=== PATIENT | female | born 1940 | race Caucasian/White ===

== ENCOUNTER → 2017-06-19 | Outpatient (CLI) | payer OTHER ==
[~2017-06-19] MED LIST: ASPIR 8181 M1 PO; CALCIUM CITRAT1 EAC7 PO; NABUMETONE 500500 M2 PO; SIMVASTATIN10 MG PO; SYNTHROID50 MCG PO; TOPROL XL25 MG PO; VITAMIN D31000 UNIT PO; ZANAFLEX2 MG PO
== END ==
LOC: RAD 09:58
DX: M47.896 Other spondylosis, lumbar region (principal); M41.86 Other forms of scoliosis, lumbar region; M43.16 Spondylolisthesis, lumbar region

== ENCOUNTER → 2017-10-17 | Outpatient (CLI) | payer OTHER ==
[~2017-10-17] VITALS: Ht 162.6 cm; Wt 78.9 kg
--- NOTE | ~2017-10-17 | HPC ---
[facility] [place] [address] PAIN MANAGEMENT CONSULTATION Name: KARENA MOULTON [facility] [id number] Admission: 10/17/17 Attend Phys: Josep Arenas DO Discharge: Date of : 39 Report #: [id number] THIS REPORT FOR: //name// CC: Josep Ellison MD DATE OF SERVICE: 10/17/2017 CHIEF COMPLAINT: Right thoracic pain. HISTORY OF PRESENT ILLNESS: As you know, the patient is a 76-year-old female who reports right mid thoracic pain that began without inciting injury or trauma. She believes the pain began while traveling in [place]. She indicates she believes she may have exacerbated symptoms while carrying heavy bags during her travels. She was given a topical agent by a friend, which resolved the patient's symptoms. Symptoms resolved for about 6 months and then unfortunately returned. The pain became so intense she sought evaluation through her PCP who referred the patient for physical therapy. She has completed 13 sessions with resolution of symptoms initially, but her symptoms have returned to a level of 9/10. She states that she has periodic exacerbations of symptoms with 6-8 weeks of pain free with reexacerbation of symptoms and this has been present since her trip to [place]. The patient sought evaluation once again through her primary care physician who sent her for x-ray imaging of the lumbar spine. Imaging shows some changes, but nothing specific that might be causing her thoracic pain. She has been referred to our service, discussed treatment options for thoracis pain, appears to be myofascial in origin. The patient today describes the pain as gnawing, throbbing, sharp and stabbing. She indicates she experiences pain that is periodic and intermittent. No specific propagating movement. No specific relieving maneuvers. She indicates pain anywhere from 0-9/10 depending on activity. She states movement tends to exacerbate symptoms. Heat tends to improve pain. She has been referred to our service to discuss about treatment options for thoracic paraspinal muscle pain. PAST MEDICAL HISTORY: 1. Anemia. 2. Coronary artery disease. 3. Hypothyroidism. 4. Dyslipidemia. PAST SURGICAL HISTORY: 1. Tonsillectomy. 2. [place] tooth extraction. SOCIAL HISTORY: The patient denies tobacco, alcohol, IV or illicit drug use. 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 She is not receiving workmen's compensation nor is she trying to obtain disability benefits. She is unaccompanied today. She is not in litigation in regards to her pain. REVIEW OF SYSTEMS: Positive for wearing corrective eyewear, blurred and double vision, cataracts, heart trouble, palpitations, nocturia, incontinence and dribbling to urine, varicose veins, insomnia, thyroid disease, thoracic paraspinal muscle pain. All other review of systems negative per 12-point review of systems other than those listed in history of present illness. Pain impact score is 0/70. No interference of daily activities secondary to pain. ALLERGIES: No known drug allergies. CURRENT MEDICATIONS: Nabumetone 500 mg 3 times a day, cholecalciferol 1000 units per day, calcium carbonate 1 tab per day, aspirin 81 mg per day, metoprolol 25 mg once a day, simvastatin 10 mg per day, levothyroxine 50 mcg per day. IMAGING: X-ray lumbar spine shows mild right convexity of the lumbar area. Curvature is centered at L1-L2. Multilevel lumbar spondylosis with moderate to severe disk space narrowing at L1-L2, L2-L3, severe disk space narrowing at L5-S1. No evidence of compression fracture, spondylosis or spondylolisthesis. PQRS: The patient has osteoarthritis, no rheumatoid arthritis. She is placing pain score anywhere from 0-9/10. She is not a fall risk, has not had a fall in last 3 months. She is not on blood thinners. She is treated for hypertension. She is not on opioids. She has a low risk assessment for opioid abuse. FUNCTIONAL ASSESSMENT TOOL: Pain impact score 0/70. PHYSICAL EXAMINATION: VITAL SIGNS: Blood pressure 151/76, pulse is 51, respiratory rate 14, unlabored. The patient is 98% on room air. Height 5 feet 4 inches tall, weight 174 pounds, BMI calculated 29.9. GENERAL: Well-developed, well-nourished, well-hydrated 76-year-old female appearing her stated age, placing current pain score 0/10. HEENT: Normocephalic, atraumatic. Pupils equal, round, reactive to light. Extraocular muscles are intact. Sclerae nonicteric without injection. NEUROLOGIC: Cranial nerves 2-12 grossly intact. Speech is fluent. LUNGS: Clear. No wheeze, rhonchi or rales. CARDIOVASCULAR: Regular. No appreciable gallop or rub. ABDOMEN: Soft, nontender, nondistended, normoactive bowel sounds. EXTREMITIES: Show no clubbing, no cyanosis, no edema. MUSCULOSKELETAL: The patient does have a notable scoliotic curvature with [facility] [address] [place] [address] PAIN MANAGEMENT CONSULTATION Name: KARENA MOULTON Room #: REG ALEX Poonam#: [id number] Admission: 10/17/17 Attend Phys: Josep Arenas DO Discharge: Date of : 39 Report #: [id number] on the right at around L2. There are no scars, no lesions. No rashes or ulcerations over the patient's pain area. There is noted myofascial tenderness and muscle spasming of the paraspinal musculature of the mid and lower thoracic area. Deep palpation area causes intensification of pain similar to the patient's typical pain generator. Lower extremity strength is symmetrical 5/5. She is intact to light touch from L1 through S2 dermatomes. She is also intact to light touch from T1 through T12 dermatomes. Deep inhalation and exhalation does not change any pain. There is normal range of motion of the thoracic and lumbar area. No pain generation. ASSESSMENT: 1. Myofascial pain. 2. Muscle spasms of the paraspinal musculature of thoracic spine. 3. Chronic intractable pain. 4. Idiopathic scoliosis. PLAN: 1. Based on today's physical exam, history the patient provided, the description the patient uses in regards to pain as well as the location of symptoms located within the thoracic area, like source of the patient's pain is myofascial in origin. The patient comes to us today with x-ray imaging of the lumbar spine, but not imaging of the area of discomfort. We reviewed the lumbar spine imaging, which does show some changes at L2-L3, L3-L4 and L5-S1. These were all fairly typical findings in a female of her age. There is noted scoliotic curvature with apex occur around the L1-L2 level. This may be partially contributing to the patient's myofascial symptoms on the right. There is a strong possibility that her curvature may be leading to provocation of the paraspinal musculature on the right causing a periodic exacerbations of spasming. I do recommend the patient at least undergo x-ray imaging of the thoracic area just to rule out possibility of compression fractures in the thoracic spine. She is at a higher risk as she is female and of older age. We will send the patient for the thoracic imaging; will review once it is available. I will provide this back to the PCP for completeness sake. 2. It does appear the patient is suffering from myofascial symptoms involving the paraspinal musculature of the right thoracic area. We discussed treatment options with the patient today. These treatment options would include physical therapy, stretching exercises with direct attention to the paraspinal musculature of thoracic spine. I am aware that the patient has undergone PT 13 different sessions, but I am not confident that they had directed the treatment at the area of discomfort. The patient cannot recall the specific exercises she was performing. We also discussed the possibility of medication management with a muscle relaxant to be used on an as-needed basis when her pain intensifies. We also discussed trigger point injections of the paraspinal musculature. She wishes to initiate therapy with muscle relaxants. If this is ineffective over a 2-week period of time, this in conjunction with her previous physical therapy, we have requested that she reinitiate at home, we would then look towards [address] [address] PAIN MANAGEMENT CONSULTATION Name: KARENA MOULTON Room #: REG ALEX Levin#: [id number] Admission: 10/17/17 Attend Phys: Josep Arenas DO Discharge: Date of : 39 Report #: [id number] trigger point injections. 3. The patient was provided prescription of tizanidine 2 mg dose 1 tab p.o. q.8 hours p.r.n. muscle spasms, given the patient #90 tablets. I advised the patient to take the 2 mg dose. If this causes somnolence, use a half dose and use it more frequently. If no improvement in symptoms at 2 mg and no side effects, she could double up to 4 mg assuming no side effects and some efficacy. I have given the patient the medication to trial over the next 2 weeks. She will contact our clinic with any questions or concerns. 4. The patient will return to our clinic in 2 weeks. If she continues to experience myofascial symptoms in the area, we would recommend she undergo trigger point injections of the thoracic paraspinal musculature on the right side. We will obtain authorization for the patient to undergo the procedure. It does take anywhere from 4-7 working days for this to be approved. We will start the authorization process immediately. We will have this available if the patient needs the injections at her next visit. 5. We wish to thank Dr. Ellison for the referral of the patient to our clinic. We will keep you apprised of her response to treatment as we address her ongoing paraspinal muscular thoracic issues. Again, we wish to thank you for the opportunity to see her in consultation. <ELECTRONICALLY SIGNED> By: Josep Arenas DO 10/18/17 0834 [id number] 25 Josep Arenas DO /nt
[2017-10-17 12:23] VITALS: BP 151/76
== END ==
LOC: PAIN 07:19
DX: M47.816 Spondylosis without myelopathy or radiculopathy, lumbar region (principal); M41.24 Other idiopathic scoliosis, thoracic region; G89.4 Chronic pain syndrome; M62.838 Other muscle spasm; I25.10 Atherosclerotic heart disease of native coronary artery without angina pectoris; E03.9 Hypothyroidism, unspecified

== ENCOUNTER → 2017-10-31 | Outpatient (CLI) | payer OTHER ==
[~2017-10-31] VITALS: Ht 162.6 cm; Wt 79.3 kg
--- NOTE | ~2017-10-31 | P ---
[facility] [place] [address] [place] [address] PROCEDURE REPORT Name: KARENA MOULTON Room #: REG [facility] [id number] Admission: 10/31/17 Attend Phys: Josep Arenas DO Discharge: Date of : 39 Report #: [id number] THIS REPORT FOR: //name// CC: Josep Ellison MD DATE OF SERVICE: 10/31/2017 PROCEDURE NOTE DESCRIPTION OF PROCEDURE: Trigger point injections. After obtaining written consent, the patient was placed in a seated position. By palpating using a single finger, six trigger points were identified that reproduced the patient's typical radiating pain pattern. The trigger points were located within the paraspinal musculature of the mid thoracic area on the right side. Each of the target sites of injection was cleansed using aseptic technique. A 27-gauge 1-1/4 inch needle was then advanced towards each of the trigger points until the patient's typical radiating pain pattern was reproduced. After negative aspiration for heme, 1 mL of a solution containing 1 mL 40 mg per mL, 40 mg total triamcinolone and 5 mL of bupivacaine 0.5% injected in a fanned out distribution at each trigger point for a total volume of 6 mL being given. Sterile bandage was placed over each injection sites. The patient tolerated procedure well, carefully escorted to recovery room in stable condition. No apparent complications. VAS rated at 8/10 before procedure, 0/10 after procedure. After meeting our discharge criteria, the patient discharged home. <ELECTRONICALLY SIGNED> By: Josep Arenas DO 11/07/17 1448 [id number] [id number] Josep Arenas DO /nt
--- NOTE | ~2017-10-31 | HPC ---
[facility] [address] [address] PAIN MANAGEMENT CONSULTATION Name: KARENA MOULTON Room #: REG [facility] [id number] Admission: 10/31/17 Attend Phys: Josep Arenas DO Discharge: Date of : 39 Report #: [id number] THIS REPORT FOR: //name// CC: Josep Ellison MD DATE OF SERVICE: 10/31/2017 REFERRING PHYSICIAN: Salvatore Ellison M.D. CHIEF COMPLAINT: Right thoracic pain. HISTORY OF PRESENT ILLNESS: As you know, the patient is a 76-year-old female who reports right mid thoracic pain began without inciting injury or trauma. She believes the pain began while traveling in [place]. She was seen in consultation per the request of Dr. Ellison 12/17/2018, diagnosed with myofascial pain, muscle spasms of the right thoracic area, idiopathic scoliosis and chronic intractable pain. The patient and I discussed treatment options at that visit including physical therapy, stretching exercises, core strengthening. We also discussed medication management utilizing anti-inflammatory and a nonsedating muscle relaxant. We discussed trigger point injections and cognitive behavioral therapy. After reviewing the risks and benefits of all proposed treatment options, the patient chose to begin with imaging of the thoracic spine, which had not been completed prior to her visit and scheduled back today for trigger point injections. She returns to review her x-ray imaging and to move forward with trigger point injections of the paraspinal musculature, they were right mid thoracic area. ALLERGIES: No known drug allergies. CURRENT MEDICATIONS: Nabumetone, cholecalciferol, calcium carbonate, aspirin, metoprolol, simvastatin, levothyroxine, tizanidine. SOCIAL HISTORY: The patient denies tobacco, alcohol, IV or illicit drug use. 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 IMAGING: X-ray of the thoracic spine shows slight scoliotic curvature, no acute bony abnormalities, spondylosis is demonstrated and visualized in the upper lumbar spine. No changes in the thoracic spine. PHYSICAL EXAMINATION: VITAL SIGNS: Blood pressure 146/55, pulse 45, respiratory rate 14 and unlabored. The patient is 98% on room air. Height 5 feet 4 inches tall, weight 174.8 pounds, BMI [place] [address] [address] PAIN MANAGEMENT CONSULTATION Name: KARENA MOULTON [facility] #: [facility] [id number] Admission: 10/31/17 Attend Phys: Josep Arenas DO Discharge: Date of : 39 Report #: [id number] GENERAL: Well-developed, well-nourished, well-hydrated 76-year-old female appearing stated age. Pain is rated at around 8/10. HEENT: Normocephalic, atraumatic. Pupils equal, round, reactive to light. Extraocular muscles are intact. Sclerae are nonicteric without injection. NEUROLOGIC: Cranial nerves 2-12 grossly intact. Speech fluent. She is deemed a good historian. LUNGS: Clear, no wheeze, rhonchi or rales. CARDIOVASCULAR: Regular. No appreciable gallop or rub. ABDOMEN: Soft, mildly obese, normoactive bowel sounds. MUSCULOSKELETAL: Palpatory tenderness over the paraspinal musculature, right mid thoracic area. This correlates to the trapezius, underlying rhomboids and possible addition of the teres. No rashes, no lesions, no ulcerations on overlying area. ASSESSMENT: 1. Myofascial pain. 2. Muscle spasm of the paraspinal musculature of thoracic spine. 3. Chronic intractable pain. 4. Idiopathic Scoliosis. PLAN: 1. The patient returns today in followup visit having received precertification to undergo trigger point injections of the right mid thoracic area. I am unable to elicit approximately 6-7 trigger points that cause typical radiating pain pattern. The patient and I discussed the risks and benefits of trigger point injections today. These risks include bleeding, bruising, infection, worsening pain, no relief of pain, also risk of temporary or permanent muscle weakness, temporary or permanent nerve damage, possible paralysis, pneumothorax and . The patient states understood and wished to proceed. 2. We have reviewed the patient's x-ray imaging obtained at our last visit. I am pleased to advise the patient there are no clinical findings in the thoracic spine that would be contributing to symptoms, further confirming myofascial issues. I have advised the patient she does show some slight scoliotic curvature, this is not the source of the patient's symptoms, these are fairly typical findings for older females. There are no fractures, no subluxations, no changes in the thoracic spine. There are some minor arthritic changes in the upper lumbar area noted, though these are not contributing to the patient's symptoms. 3. The patient and I discussed physical therapy, stretching exercise, core strengthening. I believe this is indicated in this patient's case. I recommend the patient begin physical therapy and stretching exercise as quickly as possible. She states she has home exercise program. If this does not provide her good benefit, I would recommend a formalized physical therapy program. 4. We wish to thank Dr. Ellison for the opportunity to see this patient in consultation. We are pleased that the findings on the x-ray imaging show no specific pathology that is concerning for underlying issues. Symptoms appear to [facility] [address] [place] [address] PAIN MANAGEMENT CONSULTATION Name: KARENA MOULTON Bryan Room #: REG [facility]#: [id number] Admission: 10/31/17 Attend Phys: Josep Arenas DO Discharge: Date of : 39 Report #: [id number] be myofascial in origin. I believe the trigger point injections provided today with physical therapy program should be more than sufficient in treating the patient's symptoms. We will be returning her care to your capable hands be available to see the patient back in followup visit for next in the series of trigger point injections. <ELECTRONICALLY SIGNED> By: Josep Arenas DO 11/07/17 1448 [id number] 1102 Josep Arenas DO /nt
[2017-10-31 10:28] VITALS: BP 146/55
== END | disposition home or self-care (01) ==
LOC: PAIN 06:36
DX: M79.1 Myalgia (principal); G89.29 Other chronic pain; M41.24 Other idiopathic scoliosis, thoracic region; Z79.82 Long term (current) use of aspirin; Z79.899 Other long term (current) drug therapy

== ENCOUNTER → 2019-07-02 | Outpatient (CLI) | payer OTHER | LOC: SJCVC 12:58 | DX: R00.2 Palpitations (principal); E78.5 Hyperlipidemia, unspecified; L65.9 Nonscarring hair loss, unspecified; E03.9 Hypothyroidism, unspecified; Z79.899 Other long term (current) drug therapy ==

== ENCOUNTER → 2020-07-16 | Outpatient (CLI) | payer OTHER | LOC: SJCVCIMAG 07-09 07:39 | PROVIDERS: ATTEND Internal Medicine | DX: I08.2 Rheumatic disorders of both aortic and tricuspid valves (principal); Z79.899 Other long term (current) drug therapy ==

== ENCOUNTER → 2021-07-12 | Outpatient (CLI) | payer OTHER | LOC: SJCVC 09:59 | PROVIDERS: ATTEND Internal Medicine | DX: R00.2 Palpitations (principal); I38 Endocarditis, valve unspecified; E78.5 Hyperlipidemia, unspecified; R01.1 Cardiac murmur, unspecified; E03.9 Hypothyroidism, unspecified; I49.9 Cardiac arrhythmia, unspecified; Z79.82 Long term (current) use of aspirin; Z79.899 Other long term (current) drug therapy; Z88.2 Allergy status to sulfonamides ==